=== PATIENT | female | born 1995 | race Asian ===

== ENCOUNTER 2017-03-30 10:44 | Emergency (ER) | payer OTHER ==
--- NOTE | 2017-03-30 10:55 | EDPHY ---
H & P Stated Complaint: fever, body aches, abd pain Time Seen by Provider: 03/30/17 10:55 - Personal History Current Tetanus/Diphtheria Vaccine: Unsure - Medical/Surgical History Hx Asthma: No Hx Chronic Respiratory Disease: No Hx Diabetes: No Hx Cardiac Disease: No Hx Renal Disease: No Hx Cirrhosis: No Hx Alcoholism: No Hx HIV/AIDS: No Hx Splenectomy or Spleen Trauma: No Other PMH: DENIES - Social History Smoking Status: Never smoked Constitutional: Initial Vital Signs Temperature (C) 36.8 C 03/30/17 10:51 Heart Rate 124 H 03/30/17 10:51 Respiratory Rate 16 03/30/17 10:51 Blood Pressure 124/81 H 03/30/17 10:51 O2 Sat (%) 96 03/30/17 10:51 O2 Delivery Mode Room Air Allergies/Adverse Reactions: No Known Allergies Allergy (Unverified 11/15/15 21:57) Home Medications: Medication Instructions Recorded Ondansetron Odt [Zofran Odt 4 mg 4 mg PO Q4 PRN #10 tab 03/30/17 (RX)] Medical Decision Making ED Course/Re-evaluation: CHIEF COMPLAINT: Fevers chills nausea vomiting abdominal pain HISTORY OF PRESENT ILLNESS: 22-year-old female who since has had fevers and chills with nausea and abdominal pain. Whenever she eats she feels nauseated. She describes her abdominal pain as being diffuse and intermittent and has not localizing anywhere. She lives in [facility] [employer] [place] [employer] is exposed to many ill student is currently. She is generally healthy with no prior medical problems. REVIEW OF SYSTEMS: A 10 point review of systems was performed and is negative with the exception of the elements mentioned in the history of present illness. PHYSICAL EXAM: HR, BP, O2 Sat, RR. Temp noted General Appearance: Alert, well hydrated, appropriate, and non-toxic appearing. Head: Atraumatic without scalp tenderness or obvious injury Eyes: Pupils equal, round, reactive to light and accommodation, EOMI, no trauma , no injection. Ears: Clear bilaterally, no perforation, normal landmarks Nose: Atraumatic, no rhinorrhea, clear. Throat: There is no erythema or exudates, no lesions, normal tonsils, mucus membranes moist. Neck: Supple, 2+ carotid upstroke, nontender, no lymphadenopathy. Respiratory: No retractions, no distress, no wheezes, and no accessory muscle use. Lungs are clear to auscultation bilaterally. Cardiovascular: Regular rate and rhythm, no murmurs, rubs, or gallops. Bilateral carotid, radial, dorsalis pedis, and posterior tibial pulses intact. Good capillary refill all extremities. Gastrointestinal: Abdomen is soft, nontender, non-distended, no masses, no rebound, no guarding, no peritoneal signs. No localizing features to her abdominal exam Musculoskeletal: Normal active ROM of all extremities, atraumatic. Neurological: Alert, appropriate, and interactive. The patient has normal DTRs and non-focal cranial nerves, motor, sensory, and cerebellar exam. Skin: No rashes, good turgor, no nodules on palpation. Past medical history: None Past surgical history: None Family history: Noncontributory Social history: Single, student, does not abuse tobacco drugs or alcohol DIFFERENTIAL DIAGNOSIS: The differential diagnosis for the patient's abdominal pain included but was not limited to ovarian cyst, pelvic inflammatory disease, ovarian torsion, urinary tract infection, ectopic , cholecystitis, and appendicitis. MEDICAL DECISION MAKING: This patient has mild diffuse and intermittent abdominal pain. She does not localize. She has had intermittent pain since and I am not suspecting an intra-abdominal process. This patient has fevers chills nausea. We will hydrate her, give her Zofran, ketorolac and run some laboratory studies. No imaging at this time is warranted. 1217: Patient is feeling better after Ketorolac and Zofran. She will be placed on a PO trial. 1251: Reassessed patient; her abdomen is benign and she continues to feel better. She will be prescribed Zofran for her nausea. Return precautions provided; patient is comfortable with this plan. - Data Points Laboratory Results: Laboratory Results 03/30/17 11:00 03/30/17 11:00 03/30/17 03/30/17 03/30/17 11:00 11:00 11:00 WBC 13.98 10^3/uL H 10^3/uL (3.80-9.50) RBC 4.48 10^6/uL 10^6/uL (4.18-5.33) Hgb 13.9 g/dL g/dL (12.6-16.3) Hct 39.1 % % (38.0-47.0) MCV 87.3 fL fL (81.5-99.8) MCH 31.0 pg pg (27.9-34.1) MCHC 35.5 g/dL g/dL (32.4-36.7) RDW 12.3 % % (11.5-15.2) Plt Count 183 10^3/uL 10^3/uL (150-400) MPV 10.7 fL fL (8.7-11.7) Neut % (Auto) 93.0 % H % (39.3-74.2) Lymph % (Auto) 2.6 % L % (15.0-45.0) [place] % (Auto) 3.9 % L % (4.5-13.0) Eos % (Auto) 0.0 % L % (0.6-7.6) Baso % (Auto) 0.1 % L % (0.3-1.7) Nucleat RBC Rel Count 0.0 % % (0.0-0.2) Absolute Neuts (auto) 12.99 10^3/uL H 10^3/uL (1.70-6.50) Absolute Lymphs (auto) 0.37 10^3/uL L 10^3/uL (1.00-3.00) Absolute Monos (auto) 0.54 10^3/uL 10^3/uL (0.30-0.80) Absolute Eos (auto) 0.00 10^3/uL L 10^3/uL (0.03-0.40) Absolute Basos (auto) 0.02 10^3/uL 10^3/uL (0.02-0.10) Absolute Nucleated RBC 0.00 10^3/uL 10^3/uL (0-0.01) Immature Gran % 0.4 % % (0.0-1.1) Immature Gran # 0.06 10^3/uL 10^3/uL (0.00-0.10) Sodium 140 mEq/L mEq/L (135-145) Potassium 3.4 mEq/L L mEq/L (3.5-5.2) Chloride 105 mEq/L mEq/L (97-110) Carbon Dioxide 19 mEq/l L mEq/l (22-31) Anion Gap 16 mEq/L mEq/L (8-16) BUN 12 mg/dL mg/dL (7-23) Creatinine 1.1 mg/dL H mg/dL (0.6-1.0) Estimated GFR > 60 Glucose 174 mg/dL H mg/dL (70-100) Calcium 9.5 mg/dL mg/dL (8.5-10.4) Beta HCG, Qual NEGATIVE Medications Given: Discontinued Medications Sodium Chloride (Ns) 1,000 mls @ 0 mls/hr IV ONCE ONE PRN Reason: Wide Open Stop: 03/30/17 11:00 Last Admin: 03/30/17 11:02 Dose: 1,000 mls Sodium Chloride (Ns) 1,000 mls @ 0 mls/hr IV EDNOW ONE; Wide Open PRN Reason: Protocol Stop: 03/30/17 11:29 Last Admin: 03/30/17 12:14 Dose: Not Given Ketorolac Tromethamine (Toradol) 30 mg IVP EDNOW ONE Stop: 03/30/17 11:29 Last Admin: 03/30/17 11:41 Dose: 30 mg Morphine Sulfate (Morphine) 4 mg IVP EDNOW ONE Stop: 03/30/17 11:29 Last Admin: 03/30/17 11:49 Dose: Not Given Ondansetron HCl (Zofran) 4 mg IVP EDNOW ONE Stop: 03/30/17 11:00 Last Admin: 03/30/17 11:02 Dose: 4 mg Ondansetron HCl (Zofran Odt) 4 mg PO EDNOW ONE Stop: 03/30/17 11:29 Last Admin: 03/30/17 11:43 Dose: Not Given Departure - Departure Disposition: Home, Routine, Self-Care Clinical Impression: Gastritis Qualifiers: Gastritis type: unspecified gastritis Chronicity: acute Gastritis bleeding: without bleeding Qualified Code(s): K29.00 - Acute gastritis without bleeding Condition: Good Instructions: Gastritis (ED) Additional Instructions: 1. Increase fluid intake. 2. Take 4mg oral Zofran as needed for nausea. 3. Follow-up with your primary doctor within 72 hours. 4. Return to the Emergency Department for fever, chest pain, shortness of breath , increasing pain, or other worsening of condition. Referrals: [facility] [Clinic] - As per Instructions Prescriptions: Ondansetron Odt [Zofran Odt 4 mg (RX)] 4 mg PO Q4 PRN #10 tab PRN Reason: Nausea/Vomiting, Use 1st Report Scribed for: Hernesto Escobedo Report Scribed by: Gloria Pablo Date of Report: 03/30/17 Time of Report: 12:52
[2017-03-30] MEDS ORDERED: NS 1,000 ML IV ONE ×2 (10:59→11:28)
[2017-03-30] MEDS ORDERED: ONDANSETRON 4 MG/2 ML VIAL IVP ONE (10:59)
[2017-03-30 11:05] VITALS: RESP 18
[2017-03-30] MEDS ORDERED: ONDANSETRON DISINTEGRATING 4 MG TAB PO ONE (11:28)
[2017-03-30] MEDS ORDERED: KETOROLAC 30 MG/1 ML SDV IVP ONE (11:28)
[2017-03-30 11:36] LABS: PLATELET COUNT 183 10^3/uL (150-400)
[2017-03-30 12:59] VITALS: BP 112/78; PULSE 95; TEMP 99.7; O2SAT 97
== END 2017-03-30 12:58 | disposition home or self-care (01) ==
DX: K29.00 Acute gastritis without bleeding (principal)
CPT/HCPCS: 96374; J1885; J2405